=== PATIENT | female | born 2000 | race Caucasian/White ===

== ENCOUNTER 2022-12-19 20:25 | Emergency (ER) | payer BC ==
[2022-12-19] MEDS ORDERED: HYDROcodone/Acetaminophen 5/325 mg Tablet ONE (21:15)
== END 2022-12-19 21:25 | disposition home or self-care (01) ==
LOC: NAV ERS 20:25
DX: M62.838 Other muscle spasm (principal)
CPT/HCPCS: 99283

== ENCOUNTER 2025-03-05 08:46 | Emergency (ER) | payer BC | END 2025-03-05 10:10 | disposition home or self-care (01) | LOC: NAV ERS 08:46 | DX: B34.9 Viral infection, unspecified (principal) | CPT/HCPCS: 87081; 87430; 99283 ==